=== PATIENT | female | born 1980 | race Caucasian/White ===

== ENCOUNTER 2020-05-08 17:17 | Outpatient (CLI) | payer OTHER ==
[~2020-05-08] VITALS: Ht 152.4 cm; Wt 84.1 kg
[2020-05-08 17:36] VITALS: BP 126/82
== END 2020-05-08 18:00 | disposition home or self-care (01) ==
LOC: LDOP 17:17
PROVIDERS: ATTEND Obstetrics & Gynecology
DX: O36.8120 Decreased fetal movements, second trimester, not applicable or unspecified (principal); Z3A.22 22 weeks gestation of pregnancy
CPT/HCPCS: 99201; G0463

== ENCOUNTER 2020-09-07 07:22 | Inpatient (IN) | payer OTHER ==
[~2020-09-07] VITALS: Ht 152.4 cm; Wt 95.0 kg
[2020-09-07] MEDS ORDERED: LACTATED RINGERS 1,000 ML IVBOLUS ONE (08:00)
[2020-09-07] MEDS ORDERED: METOCLOPRAMIDE 5 MG/ML, 2ML IV ONE (08:00)
[2020-09-07] MEDS ORDERED: SODIUM CITRATE/CITRIC ACID 30 ML UDC PO ONE ×2 (08:00→14:00)
[2020-09-07] MEDS ORDERED: METOCLOPRAMIDE 5 MG/ML, 2ML ONE (08:10)
[2020-09-07] MEDS ORDERED: NEWBORN KIT ONE (08:10)
[2020-09-07] MEDS ORDERED: OXYTOCIN 30U/ 0.9% NaCL 500ML 500 ML ONE (08:10)
[2020-09-07 08:26] LABS: BASOPHILS % (AUTO) 0 % (0-1); EOSINOPHILS % (AUTO) 1 % (1-7); LYMPHOCYTES % (AUTO) 22 % (22-44); MEAN CORPUSCULAR HEMOGLOBIN 28.2 pg (27.0-34.8); MEAN CORPUSCULAR HGB CONC 32.5 g/dL (32.4-35.8); MEAN PLATELET VOLUME 9.4 fL (7.4-10.4); MONOCYTES % (AUTO) 6 % (2-9); NEUTROPHILS % (AUTO) 71 % (42-75); PLATELET COUNT 250 x10^3/uL (130-400); RED BLOOD COUNT 4.82 x10^6/uL (3.82-5.3); RED CELL DISTRIBUTION WIDTH 15.1 % (9.6-15.2)
[2020-09-07 08:28] LABS: MD NO
[2020-09-07] MEDS: LACTATED RINGERS 1,000 ML IV SCH ×4 (08:30→21:30)
[2020-09-07] MEDS ORDERED: PREN1TAB60 PO (08:33)
[2020-09-07] MEDS ORDERED: CHOL10003 PO (08:34)
[2020-09-07] MEDS ORDERED: NPH,100V SQ (08:44)
[2020-09-07] MEDS ORDERED: morphine SULFATE/PF 0.5 MG/ML, 10ML ONE (09:45)
[2020-09-07] MEDS ORDERED: CEFAZOLIN 1,000 MG ONE (09:47)
[2020-09-07] MEDS ORDERED: ONDANSETRON 2MG/ML, 2ML ONE ×2 (09:47→12:48)
[2020-09-07] MEDS ORDERED: WATER-INJECTION,STERILE 10 ML IV ONE (09:47)
[2020-09-07] MEDS ORDERED: SODIUM CHLORIDE 0.9% PF 10ML ONE (09:47)
[2020-09-07] MEDS ORDERED: PHENYLEPHRINE 10 MG/ML ONE (09:47)
[2020-09-07] MEDS ORDERED: DEXAMETHASONE 4 MG/ML, 1ML ONE (09:47)
[2020-09-07] MEDS ORDERED: KETOROLAC 30 MG/1 ML ONE (09:47)
[2020-09-07] MEDS ORDERED: OXYTOCIN 10 UNITS/ML, 1ML ONE (09:47)
[2020-09-07] MEDS: KETOROLAC 30 MG/1 ML IV SCH ×3 (11:30→23:24)
[2020-09-07] MEDS ORDERED: METOCLOPRAMIDE 5 MG/ML, 2ML IV PRN (11:30)
[2020-09-07] MEDS: IBUPROFEN 600 MG TABLET PO SCH ×2 (11:30→17:30)
[2020-09-07] MEDS: OXYTOCIN 30U/ 0.9% NaCL 500ML 500 ML IV SCH ×2 (11:30→21:30)
[2020-09-07] MEDS ORDERED: MISOPROSTOL 200 MCG TABLET PR PRN (11:30)
[2020-09-07] MEDS ORDERED: ONDANSETRON 2MG/ML, 2ML IV PRN ×2 (11:30→13:30)
[2020-09-07] MEDS ORDERED: CEFAZOLIN 2,000 MG in SODIUM CHLORIDE 0.9% 50 ML IV SCH (11:30)
[2020-09-07] MEDS ORDERED: CEFAZOLIN PMX 2GM/50ML 50 ML IVPB SCH (12:00)
[2020-09-07] MEDS ORDERED: PROMETHAZINE 25 MG/ML, 1ML ONE (13:19)
[2020-09-07] MEDS ORDERED: FENTANYL PF 100 MCG/2ML ONE (13:27)
[2020-09-07] MEDS ORDERED: MEPERIDINE/PF 25MG/0.5ML IV PRN (13:30)
[2020-09-07] MEDS ORDERED: FENTANYL PF 100 MCG/2ML IVPush PRN (13:30)
[2020-09-07] MEDS ORDERED: PROMETHAZINE 25 MG/ML, 1ML IV PRN (13:30)
[2020-09-07] MEDS ORDERED: OXYcodone 5 MG/5 ML ORAL.SOL UDC PO PRN (13:30)
[2020-09-07 14:16] VITALS: BP 110/71
[2020-09-07] MEDS: ACETAMINOPHEN 325 MG TABLET PO SCH ×2 (15:00→21:00)
[2020-09-07 17:14] VITALS: BP 119/75
[2020-09-07 19:13] LABS: BASOPHILS % (AUTO) 0 % (0-1); EOSINOPHILS % (AUTO) 0 % (1-7); LYMPHOCYTES % (AUTO) 8 % (22-44); MEAN CORPUSCULAR HGB CONC 32.1 g/dL (32.4-35.8); MEAN PLATELET VOLUME 9.7 fL (7.4-10.4); MONOCYTES % (AUTO) 4 % (2-9); NEUTROPHILS % (AUTO) 87 % (42-75); PLATELET COUNT 228 x10^3/uL (130-400); RED BLOOD COUNT 4.39 x10^6/uL (3.82-5.3); RED CELL DISTRIBUTION WIDTH 15.5 % (9.6-15.2)
[2020-09-07 19:14] LABS: MD NO
[2020-09-07 19:30] VITALS: BP 106/68
[2020-09-07] MEDS ORDERED: OXYcodone/APAP 5/325MG TABLET PO PRN ×2 (21:30)
[2020-09-07 23:30] VITALS: BP 99/63
[2020-09-08] MEDS: ACETAMINOPHEN 325 MG TABLET PO SCH ×4 (03:00→22:57)
[2020-09-08 03:45] VITALS: BP 100/65
[2020-09-08] MEDS: KETOROLAC 30 MG/1 ML IV SCH ×2 (05:04→10:36)
[2020-09-08] MEDS: OXYTOCIN 30U/ 0.9% NaCL 500ML 500 ML IV SCH ×2 (07:30→17:30)
[2020-09-08] MEDS: LACTATED RINGERS 1,000 ML IV SCH ×2 (07:30→17:30)
[2020-09-08 07:45] VITALS: BP 97/64
[2020-09-08] MEDS: PRENATAL VIT/IRON/FA 1 EACH TABLET PO SCH (09:00)
[2020-09-08] MEDS: SIMETHICONE 80 MG CHEW TAB PO PRN ×2 (15:41→22:57)
[2020-09-08] MEDS: OXYcodone IR 5MG TABLET PO PRN ×2 (15:41→19:53)
[2020-09-08] MEDS: IBUPROFEN 600 MG TABLET PO PRN ×2 (17:04→22:57)
[2020-09-08] MEDS: DOCUSATE 100 MG CAPSULE PO PRN (19:52)
[2020-09-08 20:22] VITALS: BP 97/65
[2020-09-09] MEDS: OXYTOCIN 30U/ 0.9% NaCL 500ML 500 ML IV SCH ×3 (03:30→23:30)
[2020-09-09] MEDS: LACTATED RINGERS 1,000 ML IV SCH ×3 (03:30→23:30)
[2020-09-09] MEDS: ACETAMINOPHEN 325 MG TABLET PO SCH ×4 (05:01→23:01)
[2020-09-09] MEDS: IBUPROFEN 600 MG TABLET PO PRN ×4 (05:01→23:01)
[2020-09-09] MEDS: SIMETHICONE 80 MG CHEW TAB PO PRN ×4 (05:01→23:01)
[2020-09-09] MEDS: DOCUSATE 100 MG CAPSULE PO PRN ×2 (08:04→20:14)
[2020-09-09] MEDS: PRENATAL VIT/IRON/FA 1 EACH TABLET PO SCH (08:04)
[2020-09-09] MEDS: OXYcodone IR 5MG TABLET PO PRN ×3 (08:05→20:15)
[2020-09-09 08:08] VITALS: BP 107/74
[2020-09-09 20:15] VITALS: BP 105/71
[2020-09-10] MEDS: OXYcodone IR 5MG TABLET PO PRN ×2 (03:58→08:02)
[2020-09-10] MEDS: SIMETHICONE 80 MG CHEW TAB PO PRN ×2 (05:02→11:57)
[2020-09-10] MEDS: IBUPROFEN 600 MG TABLET PO PRN ×2 (05:02→11:57)
[2020-09-10] MEDS: ACETAMINOPHEN 325 MG TABLET PO SCH ×2 (05:02→11:57)
[2020-09-10 07:25] VITALS: BP 115/78
[2020-09-10] MEDS: DOCUSATE 100 MG CAPSULE PO PRN (08:00)
[2020-09-10] MEDS: PRENATAL VIT/IRON/FA 1 EACH TABLET PO SCH (08:00)
[2020-09-10] MEDS ORDERED: IBUP-1222 PO (08:10)
[2020-09-10] MEDS ORDERED: ACET325C6 PO (08:10)
[2020-09-10] MEDS ORDERED: DOCU-131 PO (08:10)
[2020-09-10] MEDS ORDERED: OXYC5TAB3 PO (08:11)
== END 2020-09-10 15:00 | disposition home or self-care (01) | DRG 788 ==
LOC: LDIP 07:55 → 2NW 14:16
PROVIDERS: ADMIT Student in an Organized Health Care Education/Training Program; ATTEND Student in an Organized Health Care Education/Training Program
PROC: 10D00Z1 Extraction of Products of Conception, Low, Open Approach (ICD-10-PCS; principal; 2020-09-08)
DX: O69.81X0 Labor and delivery complicated by cord around neck, without compression, not applicable or unspecified (principal); Z37.0 Single live birth; Z3A.38 38 weeks gestation of pregnancy; O34.211 Maternal care for low transverse scar from previous cesarean delivery; O99.214 Obesity complicating childbirth; O24.429 Gestational diabetes mellitus in childbirth, unspecified control; E66.01 Morbid (severe) obesity due to excess calories; Z83.3 Family history of diabetes mellitus; Z20.828 Contact with and (suspected) exposure to other viral communicable diseases
CPT/HCPCS: 36415; 82947; 82962; 85025; 86592; 86850; 86900; 87635; G0378; J0690; J1100; J1885; J2274; J2405; J2550; J3010; J2370; J2590; J2765; J7120